=== PATIENT | female | born 2000 ===

== ENCOUNTER 2024-10-07 05:47 | Day surgery (SDC) | payer OTHER ==
[2024-09-30 09:30] LABS: PH,URINE 5.5 (5.0-8.0); URINE APPEARANCE Clear; URINE BILIRRUBIN Negative (NEGATIVE); URINE BLOOD Negative; URINE COLOR Yellow; URINE GLUCOSE Negative (NEGATIVE); URINE KETONE Negative (NEGATIVE); URINE LEUKOCYTE Moderate; URINE NITRATE Negative; URINE PROTEIN Negative (NEGATIVE); URINE UROBILINOGEN 0.2 E.U./dl
[2024-09-30 09:32] LABS: HEMATOCRIT 40.7 % (36.0-45.00); HEMOGLOBIN 13.7 g/dL (12.0-15.00); MEAN CELL VOLUME 89.6 fL (80.00-100.00); MEAN CORPUSCULAR HEMOGLOBIN 30.1 pg (27.00-32.0); MEAN CORPUSCULAR HGB CONC 33.6 g/dl (32.0-36.0); PLATELET COUNT 215 K/uL (150-450); RED BLOOD COUNT 4.54 M/uL (4.00-6.00); RED CELL DISTRIBUTION WIDTH 12.7 % (11.5-14.5)
[2024-09-30 09:35] LABS: URINE BACTERIA 2837.2 uL (0.0-1933); URINE EPITHELIAL CELLS 64.8 uL (0.0-38.8); URINE RBC 26.6 uL (0.0-20.8); URINE WBC 44.4 uL (0.0-23.2)
[2024-09-30 09:56] LABS: INR 1.06; PARTIAL THROMBOPLASTIN TIME 27.9 SECONDS (22.0-34.0); PROTHROMBIN TIME 11.5 SECONDS (9.0-11.5)
[2024-09-30 10:29] LABS: ALBUMIN 4.1 gm/dL (3.4-5.0); BILIRUBIN TOTAL 0.67 mg/dL (0.3-1.2); CALCIUM 9.9 mg/dL (8.5-10.1); CREATININE SERUM 0.65 mg/dL (0.55-1.02); GFR 113.98; GLOBULINA 3.5 G/DL (2.4-3.5); POTASSIUM 4.43 mEq/L (3.5-5.1); TOTAL PROTEIN 7.6 gm/dL (6.4-8.2); TSH 0.597 uIU/mL (0.358-3.74)
[2024-10-07] MEDS ORDERED: CEFOXITIN SODIUM 2,000 MG VIAL IV ONE (13:51)
[2024-10-07] MEDS ORDERED: POVIDONE-IODINE 118 ML BOTT TOP ONE (13:59)
[2024-10-07] MEDS ORDERED: NAPR500T14 PO (15:08)
[2024-10-07] MEDS ORDERED: MONODOX100 MG PO (15:08)
== END 2024-10-07 20:20 | disposition home or self-care (01) ==
LOC: CIR.AMB 05:47
PROVIDERS: ATTEND Obstetrics & Gynecology
DX: D25.0 Submucous leiomyoma of uterus (principal); N84.0 Polyp of corpus uteri; N92.5 Other specified irregular menstruation; J45.909 Unspecified asthma, uncomplicated; F41.9 Anxiety disorder, unspecified; G43.909 Migraine, unspecified, not intractable, without status migrainosus

== ENCOUNTER 2025-07-19 14:22 | Outpatient (CLI) | payer OTHER ==
[~2025-07-19 14:22] MED LIST: MONODOX100 MG PO; NAPR500T14 PO
== END 2025-07-19 14:23 | disposition home or self-care (01) ==
LOC: PRENATAL 14:22
PROVIDERS: ATTEND Obstetrics & Gynecology Maternal & Fetal Medicine
DX: O44.02 Complete placenta previa NOS or without hemorrhage, second trimester (principal); Z3A.20 20 weeks gestation of pregnancy

== ENCOUNTER 2025-08-26 05:45 | Inpatient (IN) | payer OTHER ==
[~2025-08-26] VITALS: Ht 167.6 cm; Wt 60.8 kg
[2025-08-26 04:21] VITALS: BP 109/72
[2025-08-26] MEDS ORDERED: PRENATABS RX T1 EACH PO (05:50)
[2025-08-26] MEDS ORDERED: RINGERS SOLUTION,LACTATED 1,000 ML IV SCH (06:00)
[2025-08-26 06:58] LABS: BASO % 0.1 % (0.1-1.2); EOS # 0.08 (0.04-0.54); EOS % 1.1 % (0.7-7.0); LYMPH # 1.42 (1.18-3.74); LYMPH % 19.2 % (19.3-53.1); MEAN PLATELET VOLUME 10.20 fl (9.4-12.4); MONO # 0.67 (0.24-0.82); MONO % 9.1 % (4.7-12.5); NEUT # 5.17 (1.56-6.13); NEUT % 70.0 % (34.0-71.1); RED CELL DISTRIBUTION WIDTH 13.1 % (11.6-14.4)
[2025-08-26 07:19] LABS: URINE APPEARANCE Clear; URINE BILIRRUBIN Negative (NEGATIVE); URINE BLOOD Negative; URINE COLOR Yellow; URINE GLUCOSE Negative (NEGATIVE); URINE KETONE Negative (NEGATIVE); URINE LEUKOCYTE Small; URINE NITRATE Negative; URINE PROTEIN Negative (NEGATIVE); URINE UROBILINOGEN 0.2 E.U./dl
[2025-08-26 07:22] VITALS: BP 109/72
[2025-08-26 07:23] LABS: URINE EPITHELIAL CELLS 63.7 uL (0.0-38.8); URINE WBC 71.5 uL (0.0-23.2)
[2025-08-26 07:31] LABS: URINE CAST 0.00 uL (0.0-1.40); URINE RBC 1.5 uL (0.0-20.8)
[2025-08-26 07:43] LABS: ALT/SGPT 36.0 U/L (12-78); AST/SGOT 22.0 U/L (15-37); BILIRUBIN TOTAL 0.26 mg/dL (0.3-1.2); BUN CREA RATIO 24.0 (7.0-25.0); CREATININE SERUM 0.54 mg/dL (0.55-1.02); GFR 139.9; GLOBULINA 3.2 G/DL (2.4-3.5); GLUCOSE FASTING 92.0 mg/dL (65-100); OSMOLALITY SERUM 279.0 MOSM/KG (275-295)
[2025-08-26 11:00] VITALS: BP 107/62
[2025-08-26 15:15] VITALS: BP 108/72
[2025-08-26 20:00] VITALS: BP 119/78
[2025-08-26 23:02] VITALS: BP 91/60
[2025-08-27 03:03] VITALS: BP 97/65
[2025-08-27 07:03] VITALS: BP 108/73
[2025-08-27 10:40] VITALS: BP 109/72
[2025-08-27 12:07] VITALS: BP 98/69
[2025-08-27 12:28] LABS: BASO % 0.3 % (0.1-1.2); EOS # 0.11 (0.04-0.54); EOS % 1.5 % (0.7-7.0); LYMPH # 1.25 (1.18-3.74); LYMPH % 17.3 % (19.3-53.1); MEAN PLATELET VOLUME 9.80 fl (9.4-12.4); MONO # 0.52 (0.24-0.82); MONO % 7.2 % (4.7-12.5); NEUT # 5.31 (1.56-6.13); NEUT % 73.3 % (34.0-71.1); RED CELL DISTRIBUTION WIDTH 13.0 % (11.6-14.4)
[2025-08-27 13:09] VITALS: BP 122/79
[2025-08-27 13:15] LABS: ALT/SGPT 32.0 U/L (12-78); AST/SGOT 20.0 U/L (15-37); BILIRUBIN TOTAL 0.32 mg/dL (0.3-1.2); BUN CREA RATIO 20.0 (7.0-25.0); CREATININE SERUM 0.4 mg/dL (0.55-1.02); GFR 197.8; GLOBULINA 3.4 G/DL (2.4-3.5); GLUCOSE FASTING 89.0 mg/dL (65-100); OSMOLALITY SERUM 279.0 MOSM/KG (275-295)
[2025-08-27 16:35] VITALS: BP 96/62
[2025-08-28 00:03] VITALS: BP 97/59
[2025-08-28 08:35] VITALS: BP 100/64
== END 2025-08-28 11:58 | disposition home or self-care (01) | DRG 833 ==
LOC: OBS/DEL 05:45 → OB/GYN 08-27 11:02 → LDR 08-27 11:02 → OBS/DEL 08-27 11:02 → OB/GYN 08-27 11:17 → LDR 08-27 11:17 → OB/GYN 08-27 11:17 → LDR 08-28 11:58 → OB/GYN 08-28 11:58
PROVIDERS: Obstetrics & Gynecology; ADMIT Obstetrics & Gynecology; ATTEND Obstetrics & Gynecology
PROC: BU4CZZZ Ultrasonography of Uterus and Ovaries (ICD-10-PCS; principal; 2025-08-26)
PROC: BY4CZZZ Ultrasonography of Second Trimester, Single Fetus (ICD-10-PCS; 2025-08-26)
PROC: 4A1HXCZ Monitoring of Products of Conception, Cardiac Rate, External Approach (ICD-10-PCS; 2025-08-27)
DX: O26.892 Other specified pregnancy related conditions, second trimester (principal); R10.20 Pelvic and perineal pain unspecified side; O26.842 Uterine size-date discrepancy, second trimester; Z3A.25 25 weeks gestation of pregnancy; O60.02 Preterm labor without delivery, second trimester